=== PATIENT | female | born 1980 | race African-American/Black ===

== ENCOUNTER 2017-05-09 15:14 | Emergency (ER) | payer SELFPAY ==
[~2017-05-09] VITALS: Ht 170.2 cm; Wt 100.0 kg
[~2017-05-09 15:14] MED LIST: ACET-2708 PO; BACTRIM; HYDR12.529; TRAMADOL
[2017-05-09] MEDS ORDERED: KETOROLAC 60MG/2ML VIAL IM STA (20:24)
[2017-05-09] MEDS ORDERED: METHYLPREDNISOLONE SOD SUCC 125 MG/2 ML VIAL IM STA (20:24)
[2017-05-09] MEDS ORDERED: CEFTRIAXONE SODIUM 1 G/VIAL IM ONE (20:30)
[2017-05-09 23:07] VITALS: BP 145/80
== END 2017-05-09 23:09 | disposition home or self-care (01) ==
LOC: ER 20:04
DX: J03.90 Acute tonsillitis, unspecified (principal); H92.01 Otalgia, right ear; F12.10 Cannabis abuse, uncomplicated
CPT/HCPCS: 70490; 81025; 96372; 99284; J0696; J1885; J2930; Z7610

== ENCOUNTER 2025-09-24 19:46 | Emergency (ER) | payer MEDICAID ==
[~2025-09-24] VITALS: Ht 165.1 cm; Wt 141.0 kg
[2025-09-24 20:01] VITALS: O2SAT 100
[2025-09-24 20:50] LABS: CLARITY URINE TURBID (CLEAR); COLOR URINE YELLOW (YELLOW); GLUCOSE URINE NEGATIVE (NEGATIVE); KETONES URINE TRACE (NEGATIVE); LEUKOCYTE ESTERASE URINE NEGATIVE (NEGATIVE); NITRITE URINE NEGATIVE (NEGATIVE); OCCULT BLOOD URINE NEGATIVE (NEGATIVE); PH URINE 5.5 (4.5-8.0); PROTEIN URINE 1+ (NEGATIVE); SPECIFIC GRAVITY URINE 1.035 (1.005-1.030); UROBILINOGEN URINE 0.2 E.U./dL (0.2-1.0)
[2025-09-24 21:05] LABS: BACTERIA URINE 3+; RBC URINE 0-2 /hpf (0-2); SQUAMOUS EPITHELIAL CELL URINE 2+ /lpf (RARE/1+); WBC URINE 0-2 /hpf (0-2)
[2025-09-24 21:40] LABS: BASOPHILS % 0.5 % (0.0-2.0); EOSINOPHILS % 3.4 % (0.0-5.0); HEMATOCRIT. 37.8 % (36.0-48.0); HEMOGLOBIN. 12.2 g/dL (12.0-16.0); LYMPHOCYTES % 25.9 % (20.0-50.0); MEAN PLATELET VOLUME 9.1 fl (7.4-10.4); MONOCYTES % 7.4 % (2.0-8.0); NEUTROPHILS % 62.8 % (40.0-76.0); PLATELET 358 x1000/uL (130-400); RED BLOOD CELL COUNT 4.54 mill/uL (4.2-5.4); RED CELL DISTRIBUTION WIDTH 15.3 % (11.6-14.6)
[2025-09-24] MEDS: ONDANSETRON 4MG ODT PO ONE (21:46)
[2025-09-24] MEDS: DICYCLOMINE HCL 20MG TABLET PO SCH (21:46)
[2025-09-24 21:52] LABS: CREATININE 0.9 mg/dL (0.6-1.0)
[2025-09-24 21:53] LABS: UREA NITROGEN BLOOD 11 mg/dL (9-23)
[2025-09-24 21:54] LABS: ASPARTATE AMINOTRANSFERASE 26 IU/L (<34); PROTEIN TOTAL 8.0 g/dL (6.0-8.3)
[2025-09-24 21:55] LABS: BILIRUBIN DIRECT < 0.1 mg/dL (<=3.0)
[2025-09-24 21:56] LABS: BILIRUBIN TOTAL 0.2 mg/dL (0.1-1.0)
[2025-09-24] MEDS ORDERED: GUAI-450 MT (22:47)
[2025-09-24] MEDS ORDERED: ONDA-239 PO (22:47)
[2025-09-24] MEDS ORDERED: DICY20TA2 MT (22:47)
[2025-09-24 23:02] VITALS: BP 180/72; PULSE 92; RESP 17; TEMP 36.6; O2SAT 99
== END 2025-09-24 23:12 | disposition home or self-care (01) ==
LOC: ER 19:46
DX: A08.4 Viral intestinal infection, unspecified (principal); B97.89 Other viral agents as the cause of diseases classified elsewhere; I10 Essential (primary) hypertension; J06.9 Acute upper respiratory infection, unspecified
CPT/HCPCS: 99284; 80076; 80048; 81003; 81025; 83690; 85025; 36415; 93005; Q0162